=== PATIENT | male | born 1990 | race Caucasian/White ===

== ENCOUNTER 2019-12-06 08:58 | Emergency (ER) | payer SELFPAY ==
[~2019-12-06] VITALS: Ht 190.5 cm; Wt 79.0 kg
[2019-12-06 10:40] VITALS: BP 113/71
== END 2019-12-06 10:45 | disposition home or self-care (01) ==
LOC: ER 08:58
DX: F11.23 Opioid dependence with withdrawal (principal); M79.10 Myalgia, unspecified site; R19.7 Diarrhea, unspecified; R11.0 Nausea; F19.10 Other psychoactive substance abuse, uncomplicated
CPT/HCPCS: 99281